=== PATIENT | male | born 1945 | race Caucasian/White ===

== ENCOUNTER 2021-02-08 12:33 | Emergency (ER) | payer OTHER, SELFPAY ==
[2021-02-08 12:50] VITALS: BP 155/83; PULSE 92; RESP 18; TEMP 36.3; O2SAT 100
--- NOTE | 2021-02-08 13:14 | PC.NURSE ---
pt states that he doctor thinks he may have covid. pt denies any fever or cough. states has had vaccines.
--- NOTE | 2021-02-08 14:22 | ED.GENADULT ---
HPI - General Adult General Chief complaint: Unspecified Stated complaint: unable to smell or taste, supposedly has cough Time Seen by Provider: 02/08/21 14:08 History of Present Illness HPI narrative: 76-year-old male present to the emergency department for evaluation of Covid symptoms. Patient states due to his symptoms his primary care physician suggested that he be Covid tested. Patient states that he has inability to smell, cough and shortness of breath. Patient states that all of these are chronic and denies any recent or new symptoms. Related Data Allergies Allergy/AdvReac Type Severity Reaction Status Date / Time Penicillins Allergy Unknown Unknown Verified 02/08/21 13:09 Review of Systems Review of Systems: CONSTITUTIONAL: Denies fever, chills, or sweats. EYES: Denies visual changes, redness, or discharge. ENT: Denies rhinorrhea, congestion, sore throat, or otalgia. CARDIOVASCULAR: Denies any chest pain RESPIRATORY: Reports chronic cough and shortness of breath with no change in baseline. GASTROINTESTINAL: Denies abdominal pain, nausea, vomiting, or diarrhea. GENITOURINARY: Denies dysuria or hematuria. SKIN: Denies rash or itching. MUSCULOSKELETAL: Denies back pain, joint pain, or myalgia. NEUROLOGIC: Denies headache, numbness, or weakness. Reports he has lost of taste but states this is not new and has been ongoing for years PSYCHIATRIC: Denies anxiety or depression. Exam Narrative: APPEARANCE: Well appearing, no pain in distress, well-nourished. Head normocephalic atraumtaic. EYES: PERRLA/EOMI, conjunctivae very clear. NOSE: Normal no drainage EARS:TMS clear Malissa Guadalupe, with good light reflex. THROAT: Pharynx clear, no exudate. NECK: Supple. No adenopathy, no masses. RESPIRATORY: Airway patent, respirations nonlabored. Clear to auscultation bilaterally, no rales, rhonchi, wheezing. CARDIOVASCULAR: Regular rate and rhythm without murmurs rubs or gallops. ABDOMINAL: Soft, nontender, nondistended, no hepatosplenomegally MUSCULOSKELETAl: Moves all extremities. Strenght/ROM intact, No edema, No calf tenderness. NEURO: Alert. Cranial nerves II through XII intact. Good gait. Good coordination SKIN: Warm, dry. Normal Color PSYCHIATRIC: Normal affect/mood Course Course Emergency Course: Patient presents to the emerge department for evaluation of Covid. Patient will have Covid PCR ordered. He was updated on the importance of following quarantine and having close follow-up with his primary care physician. All questions and concerns were addressed. Patient was well-appearing at time of discharge from the emergency department and continued to have no acute complaints. Vital Signs Vital signs: Vital Signs Temperature 97.4 F L 02/08/21 12:50 Pulse Rate 92 02/08/21 12:50 Respiratory Rate 18 02/08/21 12:50 Blood Pressure 155/83 H 02/08/21 12:50 Pulse Oximetry 100 02/08/21 12:50 Temperature 97.4 F L 02/08/21 12:50 Pulse Rate 92 02/08/21 12:50 Respiratory Rate 16 02/08/21 15:04 Blood Pressure 155/83 H 02/08/21 12:50 Pulse Oximetry 100 02/08/21 12:50 Medical Decision Making MDM Narrative Medical decision making narrative: Patient denies any acute changes. Patient states he is to present here by his primary care physician. Differential Diagnosis Differential Diagnosis: Chronic etiologies secondary to his smoking are most likely due to the cough, baseline shortness of breath and decreased taste. Covid is also a possibility. Vital Signs Vital Signs: Vital Signs Temperature 97.4 F L 02/08/21 12:50 Pulse Rate 92 02/08/21 12:50 Respiratory Rate 18 02/08/21 12:50 Blood Pressure 155/83 H 02/08/21 12:50 Pulse Oximetry 100 02/08/21 12:50 Temperature 97.4 F L 02/08/21 12:50 Pulse Rate 92 02/08/21 12:50 Respiratory Rate 16 02/08/21 15:04 Blood Pressure 155/83 H 02/08/21 12:50 Pulse Oximetry 100 02/08/21 12:50 Lab Data Labs: Lab Results 02/08/21 Range/Units 14:5
[2021-02-08 15:04] VITALS: RESP 16
[2021-02-09 19:33] LABS: SARS-CoV-2 RNA PCR Negative
== END 2021-02-08 15:04 | disposition home or self-care (01) ==
PROVIDERS: Emergency Provider Emergency Medicine
DX: R05.9 Cough, unspecified (principal); Z20.822 Contact with and (suspected) exposure to COVID-19
CPT/HCPCS: 99283; C9803; U0003; U0005